=== PATIENT | female | born 1990 | race Two or more races ===

== ENCOUNTER 2019-02-21 00:07 | Outpatient (CLI) | payer SELFPAY ==
[~2019-02-21] VITALS: Ht 157.5 cm; Wt 130.0 kg
[~2019-02-21 00:07] MED LIST: IBUP-1222 PO; OXYC-302 PO; PREN1TAB52 PO
[2019-02-21 00:45] LABS: MICROSCOPIC INDICATED
[2019-02-21] MEDS ORDERED: TERBUTALINE 1 MG/ML, 1ML ONE (00:48)
[2019-02-21] MEDS ORDERED: TERBUTALINE 1 MG/ML, 1ML SQ ONE (01:00)
== END 2019-02-21 02:05 | disposition home or self-care (01) ==
LOC: LDOP 00:07
PROVIDERS: ATTEND Obstetrics & Gynecology
DX: Z34.90 Encounter for supervision of normal pregnancy, unspecified, unspecified trimester (principal); Z3A.00 Weeks of gestation of pregnancy not specified
CPT/HCPCS: 81001; 87086; 96372; J3105; 59025; 99211; G0463

== ENCOUNTER 2019-03-24 22:42 | Outpatient (CLI) | payer SELFPAY ==
[~2019-03-24] VITALS: Ht 157.5 cm; Wt 132.0 kg
[2019-03-24 23:16] VITALS: BP 116/58
[2019-03-24 23:27] LABS: MICROSCOPIC INDICATED
[2019-03-25] MEDS ORDERED: LACTATED RINGERS 1,000 ML IVBOLUS ONE
[2019-03-25] MEDS ORDERED: NITROFURANTOIN (MACROBID) 100 MG CAPSULE ONE (01:35)
[2019-03-25] MEDS ORDERED: NITR100C56 PO (01:44)
[2019-03-25] MEDS ORDERED: NITROFURANTOIN (MACROBID) 100 MG CAPSULE PO ONE (02:00)
== END 2019-03-25 01:55 | disposition home or self-care (01) ==
LOC: LDOP 22:42
PROVIDERS: ATTEND Obstetrics & Gynecology
DX: O26.893 Other specified pregnancy related conditions, third trimester (principal); R10.9 Unspecified abdominal pain; Z3A.41 41 weeks gestation of pregnancy
CPT/HCPCS: 81001; 87086; 96360; J7120; 59025

== ENCOUNTER 2019-03-31 02:15 | Inpatient (IN) | payer BC, OTHER ==
[~2019-03-31] VITALS: Ht 157.5 cm; Wt 132.0 kg
[2019-03-31] VITALS (7 sets, daily range): BP systolic 96–113; BP diastolic 53–72
[~2019-03-31 02:15] MED LIST changes: +NITR100C56 PO
[2019-03-31] MEDS ORDERED: NEWBORN KIT ONE (02:24)
[2019-03-31] MEDS ORDERED: SODIUM CITRATE/CITRIC ACID 15 ML UDC ONE (02:26)
[2019-03-31] MEDS ORDERED: METOCLOPRAMIDE 5 MG/ML, 2ML ONE (02:26)
[2019-03-31] MEDS ORDERED: METOCLOPRAMIDE 5 MG/ML, 2ML IV ONE (02:30)
[2019-03-31] MEDS ORDERED: LACTATED RINGERS 1,000 ML IVBOLUS ONE (02:30)
[2019-03-31] MEDS ORDERED: SODIUM CITRATE/CITRIC ACID 15 ML UDC PO ONE (02:30)
[2019-03-31] MEDS ORDERED: morphine SULFATE/PF 0.5 MG/ML, 10ML ONE (02:44)
[2019-03-31 02:59] LABS: BASOPHILS # (AUTO) 0.03 x10^3/uL (0-0.1); BASOPHILS % (AUTO) 0 % (0-1); EOSINOPHILS # (AUTO) 0.07 x10^3/uL (0-0.4); EOSINOPHILS % (AUTO) 1 % (1-7); LYMPHOCYTES # (AUTO) 1.84 x10^3/uL (1-3.4); LYMPHOCYTES % (AUTO) 16 % (22-44); MD NO; MEAN CORPUSCULAR HEMOGLOBIN 29.2 pg (27.0-34.8); MEAN CORPUSCULAR HGB CONC 32.8 g/dL (32.4-35.8); MEAN CORPUSCULAR VOLUME 89.2 fL (80-100); MEAN PLATELET VOLUME 9.9 fL (7.4-10.4); MONOCYTES # (AUTO) 0.74 x10^3/uL (0.2-0.8); MONOCYTES % (AUTO) 7 % (2-9); NEUTROPHILS % (AUTO) 76 % (42-75); PLATELET COUNT 209 x10^3/uL (130-400); RED BLOOD COUNT 4.52 x10^6/uL (3.82-5.3)
[2019-03-31] MEDS ORDERED: PENICILLIN GK 5,000,000 UNITS in DEXTROSE 5% 100 ML IVPB ONE (03:00)
[2019-03-31] MEDS: OXYTOCIN 30U/ 0.9% NaCL 500ML 500 ML IV SCH ×3 (03:08→23:08)
[2019-03-31] MEDS ORDERED: LACTATED RINGERS 1,000 ML IV SCH (03:08)
[2019-03-31] MEDS: LACTATED RINGERS 1,000 ML IV SCH ×3 (03:08→19:08)
[2019-03-31] MEDS ORDERED: OXYTOCIN 30U/ 0.9% NaCL 500ML 500 ML ONE (03:12)
[2019-03-31] MEDS ORDERED: IBUPROFEN 600 MG TABLET PO PRN (03:30)
[2019-03-31] MEDS ORDERED: SIMETHICONE 80 MG CHEW TAB PO PRN (03:30)
[2019-03-31] MEDS ORDERED: MISOPROSTOL 200 MCG TABLET PR PRN (03:30)
[2019-03-31] MEDS ORDERED: ONDANSETRON 2MG/ML, 2ML IV PRN (03:30)
[2019-03-31] MEDS ORDERED: DIPH,PERTUSS(ACELL),TET VAC/PF NC IM-VACC PRN (03:30)
[2019-03-31] MEDS ORDERED: CALCIUM CARBONATE 500 MG TAB.CHEW PO PRN (03:30)
[2019-03-31] MEDS ORDERED: ACETAMINOPHEN 325 MG TABLET PO PRN ×2 (03:30)
[2019-03-31] MEDS ORDERED: morphine SULFATE 10 MG/ML, 1ML IM PRN (03:30)
[2019-03-31] MEDS ORDERED: OXYcodone/APAP 5/325MG TABLET PO PRN ×2 (03:30)
[2019-03-31] MEDS ORDERED: MEASLES,MUMPS&RUBELLA VACC/PF 0.5 ML SQ-VACC PRN (03:30)
[2019-03-31] MEDS ORDERED: MORPHINE SULFATE 4 MG/ML, 1ML IVPush PRN (03:30)
[2019-03-31] MEDS ORDERED: WATER-INJECTION,STERILE 10 ML IV ONE (03:39)
[2019-03-31] MEDS ORDERED: CEFAZOLIN 1,000 MG ONE ×2 (03:39)
[2019-03-31] MEDS ORDERED: OXYTOCIN 10 UNITS/ML, 1ML ONE (03:39)
[2019-03-31] MEDS ORDERED: EPHEDRINE 50 MG/ML, 1ML ONE (03:39)
[2019-03-31] MEDS ORDERED: PHENYLEPHRINE 10 MG/ML ONE (03:39)
[2019-03-31] MEDS ORDERED: ONDANSETRON 2MG/ML, 2ML ONE (03:39)
[2019-03-31] MEDS ORDERED: EPINEPHRINE 1 MG/ML, 1ML ONE (03:39)
[2019-03-31] MEDS: PRENATAL VIT/IRON/FA 1 EACH TABLET PO SCH (09:00)
[2019-03-31] MEDS: KETOROLAC 30 MG/1 ML IV SCH ×3 (11:59→23:35)
[2019-03-31 12:04] LABS: BASOPHILS % (AUTO) 0 % (0-1); EOSINOPHILS # (AUTO) 0.01 x10^3/uL (0-0.4); EOSINOPHILS % (AUTO) 0 % (1-7); LYMPHOCYTES % (AUTO) 9 % (22-44); MD NO; MEAN CORPUSCULAR HGB CONC 32.5 g/dL (32.4-35.8); MEAN CORPUSCULAR VOLUME 89.2 fL (80-100); MEAN PLATELET VOLUME 9.8 fL (7.4-10.4); MONOCYTES # (AUTO) 0.34 x10^3/uL (0.2-0.8); MONOCYTES % (AUTO) 2 % (2-9); NEUTROPHILS # (AUTO) 13.28 x10^3/uL (1.8-6.8); NEUTROPHILS % (AUTO) 89 % (42-75); PLATELET COUNT 196 x10^3/uL (130-400); RED BLOOD COUNT 4.02 x10^6/uL (3.82-5.3); RED CELL DISTRIBUTION WIDTH 14.7 % (9.6-15.2)
[2019-03-31] MEDS: NITROFURANTOIN (MACROBID) 100 MG CAPSULE PO SCH (21:06)
[2019-04-01] MEDS: LACTATED RINGERS 1,000 ML IV SCH ×3 (03:08→19:08)
[2019-04-01] MEDS: KETOROLAC 30 MG/1 ML IV SCH ×4 (05:37→23:30)
[2019-04-01 07:30] VITALS: BP 88/59
[2019-04-01] MEDS: PRENATAL VIT/IRON/FA 1 EACH TABLET PO SCH (08:11)
[2019-04-01] MEDS: NITROFURANTOIN (MACROBID) 100 MG CAPSULE PO SCH ×2 (08:11→21:49)
[2019-04-01] MEDS: DOCUSATE 100 MG CAPSULE PO PRN ×2 (08:11→21:49)
[2019-04-01] MEDS: OXYTOCIN 30U/ 0.9% NaCL 500ML 500 ML IV SCH ×2 (09:08→19:08)
[2019-04-01 19:30] VITALS: BP 97/65
[2019-04-02] MEDS: KETOROLAC 30 MG/1 ML IV SCH (01:12)
[2019-04-02] MEDS: LACTATED RINGERS 1,000 ML IV SCH (03:08)
[2019-04-02] MEDS: OXYTOCIN 30U/ 0.9% NaCL 500ML 500 ML IV SCH (05:08)
[2019-04-02 07:10] VITALS: BP 96/65
[2019-04-02] MEDS ORDERED: OXYC-302 PO (07:15)
[2019-04-02] MEDS ORDERED: IBUP-1222 PO (07:15)
[2019-04-02] MEDS: PRENATAL VIT/IRON/FA 1 EACH TABLET PO SCH (07:32)
[2019-04-02] MEDS: NITROFURANTOIN (MACROBID) 100 MG CAPSULE PO SCH (07:32)
[2019-04-02] MEDS: DOCUSATE 100 MG CAPSULE PO PRN (07:32)
== END 2019-04-02 12:19 | disposition home or self-care (01) | DRG 788 ==
LOC: LDOP 02:15 → LDIP 02:29 → 2NW 05:45
PROVIDERS: ADMIT Obstetrics & Gynecology; ATTEND Obstetrics & Gynecology
PROC: 10D00Z1 Extraction of Products of Conception, Low, Open Approach (ICD-10-PCS; principal; 2019-03-31)
DX: O34.211 Maternal care for low transverse scar from previous cesarean delivery (principal); O69.81X0 Labor and delivery complicated by cord around neck, without compression, not applicable or unspecified; O99.824 Streptococcus B carrier state complicating childbirth; O77.0 Labor and delivery complicated by meconium in amniotic fluid; Z37.0 Single live birth; Z3A.38 38 weeks gestation of pregnancy; Z88.2 Allergy status to sulfonamides
CPT/HCPCS: 36415; 82803; 85025; 86850; 86900; G0378; J0171; J0690; J1885; J2274; J2405; J2540; J2370; J2590; J2765; J7120

== ENCOUNTER 2019-04-07 20:32 | Emergency (ER) | payer BC, OTHER ==
[~2019-04-07] VITALS: Ht 157.5 cm; Wt 127.0 kg
[2019-04-07 20:36] VITALS: BP 114/60
== END 2019-04-07 21:10 | disposition home or self-care (01) ==
LOC: ED 21:04
DX: O90.89 Other complications of the puerperium, not elsewhere classified (principal)
CPT/HCPCS: 99281

== ENCOUNTER 2019-08-18 12:33 | Emergency (ER) | payer BC ==
[~2019-08-18] VITALS: Ht 157.5 cm; Wt 128.1 kg
[2019-08-18 12:35] VITALS: BP 126/52
--- NOTE | 2019-08-18 14:10 | NUR ---
PT'S WOUND EXAMINED BY PADMINI JACOBO AND CRISTOBAL RUDOLPH, PT'S WOUND CULTURED BY PADMINI, LAB SPECIMEN SENT TO LAB. PT'S OBGYN WAS CONSULTED AND SET UP F/U APPT FOR LATER THIS WEEK, PT EDUCATED TO PRESENT TO MD NINO'S OFFICE 08/20 AT 11AM FOR F/U APPT. WOUND WAS PACKED AND DRESSED BY PADMINI JACOBO. PT TOLERATED WELL. PT GIVEN DC INSTRUCTIONS, PT AMB TO DC DESK WITH STEADY GAIT, ACCOMPANIED BY AND CHILDREN. PT A&O, RESPS EVEN AND UNLABORED, NADN AT MI.
== END 2019-08-18 14:23 | disposition home or self-care (01) ==
LOC: ED 14:01
DX: T81.30XA Disruption of wound, unspecified, initial encounter (principal)
CPT/HCPCS: 87070; 87077; 87205; 99283

== ENCOUNTER 2019-08-24 14:02 | Outpatient (CLI) | payer BC | END 2019-08-24 23:59 | disposition home or self-care (01) | LOC: WOUND 14:02 | PROVIDERS: ATTEND Internal Medicine | DX: T81.89XA Other complications of procedures, not elsewhere classified, initial encounter (principal); X58.XXXA Exposure to other specified factors, initial encounter; Y93.89 Activity, other specified; Y92.89 Other specified places as the place of occurrence of the external cause; Y99.8 Other external cause status | CPT/HCPCS: 97597; 99213 ==

== ENCOUNTER 2019-08-24 15:02 | Emergency (ER) | payer BC ==
[~2019-08-24] VITALS: Ht 157.5 cm; Wt 128.3 kg
[2019-08-24 15:11] VITALS: BP 121/62
[2019-08-24 15:31] LABS: BASOPHILS # (AUTO) 0.05 x10^3/uL (0-0.1); BASOPHILS % (AUTO) 1 % (0-1); EOSINOPHILS % (AUTO) 1 % (1-7); LYMPHOCYTES # (AUTO) 1.91 x10^3/uL (1-3.4); LYMPHOCYTES % (AUTO) 26 % (22-44); MD NO; MEAN CORPUSCULAR HEMOGLOBIN 27.8 pg (27.0-34.8); MEAN CORPUSCULAR HGB CONC 32.3 g/dL (32.4-35.8); MEAN CORPUSCULAR VOLUME 86.2 fL (80-100); MEAN PLATELET VOLUME 8.9 fL (7.4-10.4); MONOCYTES # (AUTO) 0.57 x10^3/uL (0.2-0.8); MONOCYTES % (AUTO) 8 % (2-9); NEUTROPHILS # (AUTO) 4.77 x10^3/uL (1.8-6.8); NEUTROPHILS % (AUTO) 65 % (42-75); PLATELET COUNT 292 x10^3/uL (130-400); RED BLOOD COUNT 5.13 x10^6/uL (3.82-5.3); RED CELL DISTRIBUTION WIDTH 14.3 % (9.6-15.2)
[2019-08-24 15:37] LABS: ANION GAP 5 mmol/L (5-15); CALCIUM 9.5 mg/dL (8.5-10.1); CHLORIDE 106 mmol/L (98-107); CREATININE 0.67 mg/dL (0.55-1.02)
--- NOTE | 2019-08-24 17:37 | NUR ---
PHYSICAL THERAPY AIDE: NA X 1
--- NOTE | 2019-08-24 17:49 | NUR ---
PROP SETTER: NA X 2
--- NOTE | 2019-08-24 17:57 | NUR ---
DATA ABSTRACTOR. NA X 3
== END 2019-08-24 17:58 | disposition left against medical advice (07) ==
LOC: ED 17:52
DX: Z48.01 Encounter for change or removal of surgical wound dressing (principal)
CPT/HCPCS: 36415; 80048; 85025; 99283

== ENCOUNTER 2020-10-08 16:06 | Outpatient (CLI) | payer BC ==
[~2020-10-08] VITALS: Ht 157.5 cm; Wt 137.7 kg
[2020-10-08 16:28] VITALS: BP 98/69
[2020-10-08] MEDS ORDERED: PREN1TAB60 PO (17:55)
== END 2020-10-08 18:02 | disposition home or self-care (01) ==
LOC: LDOP 16:06
PROVIDERS: ATTEND Obstetrics & Gynecology
DX: O36.8130 Decreased fetal movements, third trimester, not applicable or unspecified (principal); Z3A.37 37 weeks gestation of pregnancy
CPT/HCPCS: 59025; 96372

== ENCOUNTER 2020-10-16 07:59 | Inpatient (IN) | payer BC ==
[~2020-10-16] VITALS: Ht 160 cm; Wt 138.6 kg
[~2020-10-16 07:59] MED LIST changes: +PREN1TAB60 PO
[2020-10-16 08:16] VITALS: BP 119/57
[2020-10-16] MEDS ORDERED: LACTATED RINGERS 1,000 ML IV SCH (08:30)
[2020-10-16] MEDS ORDERED: SODIUM CITRATE/CITRIC ACID 30 ML UDC PO ONE (08:30)
[2020-10-16] MEDS ORDERED: METOCLOPRAMIDE 5 MG/ML, 2ML IV ONE (08:30)
[2020-10-16] MEDS ORDERED: LACTATED RINGERS 1,000 ML IVBOLUS ONE (08:30)
[2020-10-16] MEDS ORDERED: NEWBORN KIT ONE (08:31)
[2020-10-16] MEDS ORDERED: OXYTOCIN 30U/ 0.9% NaCL 500ML 500 ML ONE ×2 (08:31→11:44)
[2020-10-16] MEDS ORDERED: MISOPROSTOL 200 MCG TABLET ONE (08:31)
[2020-10-16] MEDS ORDERED: METOCLOPRAMIDE 5 MG/ML, 2ML ONE (08:31)
[2020-10-16] MEDS ORDERED: SODIUM CITRATE/CITRIC ACID 15 ML UDC ONE (08:31)
[2020-10-16 08:54] LABS: BASOPHILS % (AUTO) 0 % (0-1); EOSINOPHILS % (AUTO) 0 % (1-7); LYMPHOCYTES % (AUTO) 25 % (22-44); MEAN CORPUSCULAR HEMOGLOBIN 28.9 pg (27.0-34.8); MEAN CORPUSCULAR HGB CONC 33.6 g/dL (32.4-35.8); MEAN PLATELET VOLUME 10.3 fL (7.4-10.4); MONOCYTES % (AUTO) 8 % (2-9); NEUTROPHILS % (AUTO) 66 % (42-75); PLATELET COUNT 166 x10^3/uL (130-400); RED BLOOD COUNT 4.56 x10^6/uL (3.82-5.3); RED CELL DISTRIBUTION WIDTH 14.2 % (9.6-15.2)
[2020-10-16 08:56] LABS: MD NO
[2020-10-16] MEDS ORDERED: ONDANSETRON 2MG/ML, 2ML ONE (09:05)
[2020-10-16] MEDS ORDERED: KETOROLAC 30 MG/1 ML ONE (09:05)
[2020-10-16] MEDS ORDERED: OXYTOCIN 10 UNITS/ML, 1ML ONE (09:05)
[2020-10-16] MEDS ORDERED: DEXAMETHASONE 4 MG/ML, 1ML ONE (09:05)
[2020-10-16] MEDS ORDERED: EPHEDRINE 50 MG/ML, 1ML ONE (09:05)
[2020-10-16] MEDS ORDERED: FENTANYL PF 100 MCG/2ML ONE (09:05)
[2020-10-16] MEDS ORDERED: CEFAZOLIN 1,000 MG ONE (09:05)
[2020-10-16] MEDS ORDERED: HYDROmorphone 2 MG/ML, 1ML ONE (09:05)
[2020-10-16] MEDS ORDERED: PHENYLEPHRINE 10 MG/ML ONE (09:05)
[2020-10-16] MEDS: LACTATED RINGERS 1,000 ML IV SCH ×4 (11:30→21:30)
[2020-10-16] MEDS ORDERED: IBUPROFEN 600 MG TABLET PO PRN (11:30)
[2020-10-16] MEDS ORDERED: morphine SULFATE 10 MG/ML, 1ML IVPush PRN (11:30)
[2020-10-16] MEDS ORDERED: ONDANSETRON 2MG/ML, 2ML IV PRN (11:30)
[2020-10-16] MEDS ORDERED: OXYcodone IR 5MG TABLET PO PRN (11:30)
[2020-10-16] MEDS ORDERED: MORPHINE SULFATE 4 MG/ML, 1ML IVPush PRN (11:30)
[2020-10-16] MEDS ORDERED: MISOPROSTOL 200 MCG TABLET PR PRN (11:30)
[2020-10-16] MEDS: OXYTOCIN 30U/ 0.9% NaCL 500ML 500 ML IV SCH ×2 (12:05→21:30)
[2020-10-16] MEDS: OXYcodone/APAP 5/325MG TABLET PO PRN ×2 (13:38→20:37)
[2020-10-16 14:01] VITALS: BP 106/74
[2020-10-16] MEDS: KETOROLAC 30 MG/1 ML IV SCH ×2 (16:46→22:30)
[2020-10-16 20:00] VITALS: BP 97/61
[2020-10-16] MEDS: DOCUSATE 100 MG CAPSULE PO PRN (20:37)
[2020-10-16] MEDS: SIMETHICONE 80 MG CHEW TAB PO PRN (20:37)
[2020-10-17 00:30] VITALS: BP 94/61
[2020-10-17] MEDS: LACTATED RINGERS 1,000 ML IV SCH ×3 (03:30→11:30)
[2020-10-17 04:30] VITALS: BP 108/68
[2020-10-17] MEDS: KETOROLAC 30 MG/1 ML IV SCH ×2 (04:50→10:49)
[2020-10-17 06:14] LABS: BASOPHILS % (AUTO) 0 % (0-1); EOSINOPHILS % (AUTO) 0 % (1-7); LYMPHOCYTES % (AUTO) 15 % (22-44); MEAN CORPUSCULAR HEMOGLOBIN 28.8 pg (27.0-34.8); MEAN CORPUSCULAR HGB CONC 33.3 g/dL (32.4-35.8); MONOCYTES % (AUTO) 6 % (2-9); NEUTROPHILS % (AUTO) 78 % (42-75); PLATELET COUNT 158 x10^3/uL (130-400); RED BLOOD COUNT 3.82 x10^6/uL (3.82-5.3); RED CELL DISTRIBUTION WIDTH 14.2 % (9.6-15.2)
[2020-10-17 06:38] LABS: MD NO
[2020-10-17] MEDS: OXYTOCIN 30U/ 0.9% NaCL 500ML 500 ML IV SCH (07:30)
[2020-10-17] MEDS: SIMETHICONE 80 MG CHEW TAB PO PRN ×2 (07:31→16:31)
[2020-10-17] MEDS: DOCUSATE 100 MG CAPSULE PO PRN (07:32)
[2020-10-17] MEDS: OXYcodone/APAP 5/325MG TABLET PO PRN ×2 (07:32→16:32)
[2020-10-17 08:00] VITALS: BP 92/56
[2020-10-17] MEDS ORDERED: PRENATAL VIT/IRON/FA 1 EACH TABLET PO SCH (09:00)
[2020-10-17] MEDS ORDERED: DOCU-131 PO (10:01)
[2020-10-17] MEDS ORDERED: IBUP-1222 PO (10:03)
[2020-10-17] MEDS ORDERED: OXYC-302 PO (10:03)
[2020-10-17 12:00] VITALS: BP 97/63
[2020-10-17 16:15] VITALS: BP 96/62
== END 2020-10-17 17:20 | disposition home or self-care (01) | DRG 783 ==
LOC: LDIP 07:59 → 2NW 12:49
PROVIDERS: ADMIT Obstetrics & Gynecology; ATTEND Obstetrics & Gynecology
PROC: 0UB70ZZ Excision of Bilateral Fallopian Tubes, Open Approach (ICD-10-PCS; principal; 2020-10-16)
PROC: 10D00Z1 Extraction of Products of Conception, Low, Open Approach (ICD-10-PCS; 2020-10-16)
DX: O34.211 Maternal care for low transverse scar from previous cesarean delivery (principal); U07.1 COVID-19; J12.82 Pneumonia due to coronavirus disease 2019; O98.52 Other viral diseases complicating childbirth; O99.214 Obesity complicating childbirth; O99.824 Streptococcus B carrier state complicating childbirth; E66.01 Morbid (severe) obesity due to excess calories; K66.0 Peritoneal adhesions (postprocedural) (postinfection); O99.62 Diseases of the digestive system complicating childbirth; Z30.2 Encounter for sterilization; Z37.0 Single live birth; Z3A.39 39 weeks gestation of pregnancy
CPT/HCPCS: 36415; 85025; 86592; 86850; 86900; 87635; 88302; G0378; J0690; J1100; J1170; J1885; J2405; J3010; J2370; J2590; J2765; J7120